=== PATIENT | female | born 1960 | race Asian ===

== ENCOUNTER 2021-11-02 08:23 | Outpatient (CLI) | payer BC | END 2021-11-02 08:24 | disposition home or self-care (01) | LOC: CSHMRI 08:23 | PROVIDERS: ATTEND Internal Medicine Medical Oncology | DX: C50.211 Malignant neoplasm of upper-inner quadrant of right female breast (principal); R53.1 Weakness; R20.2 Paresthesia of skin; M47.816 Spondylosis without myelopathy or radiculopathy, lumbar region; M48.061 Spinal stenosis, lumbar region without neurogenic claudication | CPT/HCPCS: 72157; 72158; 82565 ==

== ENCOUNTER 2022-05-31 12:58 | Outpatient (CLI) | payer BC | END 2022-05-31 12:59 | disposition home or self-care (01) | LOC: CSHLAB 12:58 | PROVIDERS: ATTEND Internal Medicine Gastroenterology | DX: Z20.822 Contact with and (suspected) exposure to COVID-19 (principal); R10.9 Unspecified abdominal pain; R11.0 Nausea; Z12.11 Encounter for screening for malignant neoplasm of colon | CPT/HCPCS: 87811 ==

== ENCOUNTER 2022-06-05 10:58 | Day surgery (SDC) | payer BC ==
[2022-06-01 12:43] VITALS: BMI 17.6
[2022-06-05] MEDS ORDERED: Lidocaine 1% MPF 2 ML VIAL ONE (11:30)
[2022-06-05] MEDS ORDERED: Lidocaine Viscous Sol 2% 15 ml UD Cup ONE (12:07)
[2022-06-05] MEDS ORDERED: PROPOFOL 20 ML ONE (12:07)
[2022-06-05] MEDS ORDERED: Lidocaine 1% PF 5 ML VIAL ONE (12:07)
[2022-06-05] MEDS ORDERED: PROPOFOL 40 ML ONE (12:07)
[2022-06-05] MEDS ORDERED: ePHEDrine Sulfate 50 MG/10 ML VIAL ONE (13:16)
== END 2022-06-05 14:15 | disposition home or self-care (01) ==
LOC: CSHSDC 10:58
PROVIDERS: ATTEND Internal Medicine Gastroenterology
PROC: 0DB68ZX Excision of Stomach, Via Natural or Artificial Opening Endoscopic, Diagnostic (ICD-10-PCS; principal; 2022-06-05)
PROC: 0DJD8ZZ Inspection of Lower Intestinal Tract, Via Natural or Artificial Opening Endoscopic (ICD-10-PCS; principal; 2022-06-05)
DX: K25.9 Gastric ulcer, unspecified as acute or chronic, without hemorrhage or perforation (principal); K29.70 Gastritis, unspecified, without bleeding; K64.9 Unspecified hemorrhoids; Q43.8 Other specified congenital malformations of intestine; K59.00 Constipation, unspecified; M06.9 Rheumatoid arthritis, unspecified; F41.9 Anxiety disorder, unspecified; F32.A Depression, unspecified; Z20.822 Contact with and (suspected) exposure to COVID-19; Z85.3 Personal history of malignant neoplasm of breast; Z86.010 Personal history of colon polyps; Z79.899 Other long term (current) drug therapy; Z88.8 Allergy status to other drugs, medicaments and biological substances; Z90.12 Acquired absence of left breast and nipple
CPT/HCPCS: 88305; J2704

== ENCOUNTER 2023-12-24 14:35 | Outpatient (CLI) | payer BC | END 2023-12-24 14:36 | disposition home or self-care (01) | LOC: CSHULT 14:35 | PROVIDERS: ATTEND Family Medicine | DX: R22.2 Localized swelling, mass and lump, trunk (principal); N63.11 Unspecified lump in the right breast, upper outer quadrant | CPT/HCPCS: 76999 ==

== ENCOUNTER 2024-01-15 13:53 | Outpatient (CLI) | payer BC | END 2024-01-15 13:54 | disposition home or self-care (01) | LOC: CSHMAMMO 13:53 | PROVIDERS: ATTEND Family Medicine | DX: Z08 Encounter for follow-up examination after completed treatment for malignant neoplasm (principal); Z85.3 Personal history of malignant neoplasm of breast | CPT/HCPCS: G0279 ==

== ENCOUNTER 2024-10-30 08:03 | Outpatient (CLI) | payer BC | END 2024-10-30 08:04 | disposition home or self-care (01) | LOC: CSHMAMMO 08:03 | PROVIDERS: ATTEND Internal Medicine | DX: Z12.31 Encounter for screening mammogram for malignant neoplasm of breast (principal); M81.0 Age-related osteoporosis without current pathological fracture; Z85.3 Personal history of malignant neoplasm of breast; Z98.890 Other specified postprocedural states; M85.89 Other specified disorders of bone density and structure, multiple sites | CPT/HCPCS: 77063; 77067; 77080 ==